=== PATIENT | male | born 1980 | race Two or more races ===

== ENCOUNTER 2022-10-23 17:47 | Emergency (ER) | payer MEDICAID ==
[~2022-10-23] VITALS: Ht 185.4 cm; Wt 93.0 kg
--- NOTE | 2022-10-23 18:25 | NUR ---
RECEIVED PT 42 YRS MALE WALKING IN C/O LAUCERATION ON RT BIG TOE CUT BY SOLE WITH MILD BLEEDING WAS AT 5 PM [place]
--- NOTE | 2022-10-23 18:30 | NUR ---
SEEN BY KORINA MONTES DE OCA
--- NOTE | 2022-10-23 18:45 | NUR ---
IRREGATE WOUND DONE BY BRISEYDA Mar
[2022-10-23] MEDS ORDERED: LIDOCAINE 1% INJ 50 ML MDV IJ ONE (18:55)
[2022-10-23] MEDS ORDERED: BACI/NEOM/POLY B OINT PKT 1 UDPKT PACKET TP ONE (19:00)
[2022-10-23] MEDS ORDERED: TDAP [DIPH/PERTUSSIS/TET] 0.5 ML VIAL IM ONE ×2 (19:00→19:02)
[2022-10-23] MEDS ORDERED: LIDOCAINE HCL/PF 1% 30 ML VIAL TP ONE (19:00)
--- NOTE | 2022-10-23 19:25 | NUR ---
HAND OFF MARYANNE SOTELO
--- NOTE | 2022-10-23 19:30 | NUR ---
MD at bedside to sutture toe laceration.
[2022-10-23] MEDS ORDERED: CEPH500C2 PO (20:27)
[2022-10-23] MEDS ORDERED: IBUP-1955 PO (20:27)
[2022-10-23 20:53] VITALS: BP 137/78
--- NOTE | 2022-10-23 20:55 | NUR ---
Patient discharged to home in stable condition. Written and verbal after care instructions given. Patient verbalizes understanding of instruction.
== END 2022-10-23 20:56 | disposition home or self-care (01) ==
LOC: ER 18:04
DX: S91.111A Laceration without foreign body of right great toe without damage to nail, initial encounter (principal); Z60.2 Problems related to living alone; Z79.899 Other long term (current) drug therapy; W27.0XXA Contact with workbench tool, initial encounter; Y93.89 Activity, other specified; Y92.89 Other specified places as the place of occurrence of the external cause; Y99.8 Other external cause status
CPT/HCPCS: 99283; 12002; 90471; 90715; 73630; J3490 ×2

== ENCOUNTER 2022-11-02 12:58 | Emergency (ER) | payer MEDICAID ==
[~2022-11-02] VITALS: Ht 185.4 cm; Wt 95.3 kg
[~2022-11-02 12:58] MED LIST: CEPH500C2 PO; IBUP-1955 PO
[2022-11-02 13:04] VITALS: BP 132/70
--- NOTE | 2022-11-02 13:05 | NUR ---
THE PATIENT BIBS FO SUTURE REMOVAL ON LEFT BIG TOE "DONE HERE 10 DAYS AGO". DENIES PAIN. NO S/S INFECTION NOTED. WILL CONTINUE TO MONITOR THE PATIENT.
--- NOTE | 2022-11-02 13:55 | NUR ---
AT BEDSIDE FOR SUTURE REMOVAL
--- NOTE | 2022-11-02 14:03 | NUR ---
Patient discharged to home in stable condition. Written and verbal after care instructions given. Patient verbalizes understanding of instruction.
== END 2022-11-02 14:04 | disposition home or self-care (01) ==
LOC: ER 13:00
DX: S91.111D Laceration without foreign body of right great toe without damage to nail, subsequent encounter (principal); Z60.2 Problems related to living alone; W54.0XXD Bitten by dog, subsequent encounter